=== PATIENT | female | born 1960 | race African-American/Black ===

== ENCOUNTER → 2018-02-21 | Outpatient (CLI) | payer OTHER ==
--- NOTE | 2018-02-21 16:50 | KCIC ---
Bilateral digital screening mammograms: Reason for examination: Routine screening. Comparison is made to previous studies dated 06/05/2013 and 04/09/2012. Interpretation was made with the benefit of CAD. The skin and nipples show no abnormalities. No abnormal axillary lymph nodes are seen. The breast parenchyma is heterogeneously dense. (Breast density: Category C.) There are no dominant masses, suspicious calcifications or architectural distortion. Impression: No evidence of malignancy. Recommend routine screening. Your patient's mammogram demonstrates that she has dense breast tissue (breast density category C or D), which could hide abnormalities, and if she has other risk factors for breast cancer that have been identified, she might benefit from supplemental screening tests that may be suggested by you as her ordering physician. Dense breast tissue, in and of itself, is a relatively common condition. Therefore, this information is not provided to cause undue concern, but rather to raise your awareness and to promote discussion with your patient regarding the presence of other risk factors, in addition to dense breast tissue. Your patient's mammography results will be sent to her. BI-RAD Category 2: Benign. "Our facility is accredited by the [employer] Mammography Program." This patient's information has been entered into a reminder system for the patient to be notified with the results of her examination and a target date for the next mammogram. Electronically signed by: Purvi Flores MD (02/21/2018 4:46 PM) [id number]
== END | disposition home or self-care (01) ==
LOC: KCIC MAMMO 13:51
PROVIDERS: ATTEND Family Medicine
DX: Z12.31 Encounter for screening mammogram for malignant neoplasm of breast (principal)
CPT/HCPCS: 77067

== ENCOUNTER 2020-05-04 13:47 | Inpatient (IN) | payer BC, OTHER ==
[~2020-05-04] VITALS: Ht 165.1 cm; Wt 69.1 kg
[2020-05-04 15:13] LABS: BASO # 0.1 x10^3/uL (0.0-0.2); BASO % 1 % (0-3); EOS % 0 % (0-3); HEMATOCRIT 33.6 % (36.0-47.0); HEMOGLOBIN 10.3 g/dL (12.0-15.5); LYMPH # 1.6 x10^3/uL (1.0-4.8); LYMPH % 11 % (24-48); MEAN CORPUSCULAR HEMOGLOBIN 21 pg (25-35); MEAN CORPUSCULAR HGB CONC 31 g/dL (31-37); MEAN CORPUSCULAR VOLUME 70 fL (79-100); MONO # 0.9 x10^3/uL (0.0-1.1); MONO % 6 % (0-9); NEUT # 11.6 x10^3/uL (1.8-7.7); NEUT % 82 % (31-73); PLATELET COUNT 333 x10^3/uL (140-400); RED BLOOD COUNT 4.81 x10^6/uL (3.50-5.40); RED CELL DISTRIBUTION WIDTH 18.8 % (11.5-14.5); WHITE BLOOD COUNT 14.2 x10^3/uL (4.0-11.0)
[2020-05-04] MEDS ORDERED: methylPREDNISolone SOD SUCC PF 125 MG/2 ML VIAL. IV ONE (15:15)
[2020-05-04] MEDS ORDERED: AZITHRMYCN 500MG IVPB FOR OMNI 250 ML IV ONE (15:15)
[2020-05-04] MEDS ORDERED: ACETAMINOPHEN 500 MG TABLET PO ONE (15:15)
[2020-05-04] MEDS ORDERED: IV NORMAL SALINE 1000ML BAG 1,000 ML IV ONE ×3 (15:15→18:30)
[2020-05-04 15:23] LABS: PROTHROMBIN TIME PATIENT 17.4 SEC (11.7-14.0)
[2020-05-04 15:32] LABS: CALCIUM 9.2 mg/dL (8.5-10.1); CREATININE 1.2 mg/dL (0.6-1.0); GFR 55.3; POTASSIUM 3.7 mmol/L (3.5-5.1)
[2020-05-04 15:38] LABS: ALBUMIN 2.8 g/dL (3.4-5.0); ALBUMIN/GLOBULIN RATIO 0.5 (1.0-1.7); TOTAL BILIRUBIN 0.5 mg/dL (0.2-1.0); TOTAL PROTEIN 8.6 g/dL (6.4-8.2)
[2020-05-04 15:41] LABS: % BANDS 13 % (0-9); % LYMPHS 7 % (24-48); % MONOS 10 % (0-10); % SEGS 70 % (35-66); HYPOCHROMIA MOD; PLT ESTIMATE ADEQUATE (ADEQUATE); POLYCHROMASIA OCCASIONAL; TOXIC VACUOLATION SLIGHT
[2020-05-04 15:42] LABS: ANISOCYTOSIS SLIGHT; MICROCYTOSIS MOD; TARGET CELLS OCC
--- NOTE | 2020-05-04 15:47 | PHYS DOC ---
General Adult EDM: Chief Complaint: FEVER HPI: HPI: Patient is a 60 year old female who presents with Monday began having shortness of air, cough, fever. She does work at [employer]. She has a history of diabetes and hypertension. She states that she has been taking Tylenol for knee pain. Patient denies chest pain, abdominal pain, nausea, vomiting, diarrhea, sore throat, headache, dizziness, syncope, numbness or tingling, vision changes, focal weakness. She denies any pain at this time. Review of Systems: Review of Systems: Constitutional: + fever or chills. [] Eyes: Denies change in visual acuity. [] HENT: Denies nasal congestion or sore throat. [] Respiratory: + cough or +shortness of breath. [] Cardiovascular: Denies chest pain or edema. [] GI: Denies abdominal pain, nausea, vomiting, bloody stools or diarrhea. [] : Denies dysuria. [] Musculoskeletal: Denies back pain or joint pain. [] Integument: Denies rash. [] Neurologic: Denies headache, focal weakness or sensory changes. [] Endocrine: Denies polyuria or polydipsia. [] Lymphatic: Denies swollen glands. [] Psychiatric: Denies depression or anxiety. [] Heart Score: Risk Factors: Risk Factors: DM, Current or recent (<one month) smoker, HTN, HLP, family history of CAD, obesity. Risk Scores: Score 0 - 3: 2.5% MACE over next 6 weeks - Discharge Home Score 4 - 6: 20.3% MACE over next 6 weeks - Admit for Clinical Observation Score 7 - 10: 72.7% MACE over next 6 weeks - Early Invasive Strategies Current Medications: Current Medications Medications (Trade) Dose Ordered Sig/Ar Start Time Stop Time Status Last Admin Dose Admin Acetaminophen (Tylenol) 1,000 mg 1X ONCE 05/04/20 15:15 05/04/20 15:16 UNV Azithromycin 250 ml @ 250 mls/hr 1X ONCE 05/04/20 15:15 05/04/20 16:14 UNV Methylprednisolone Sodium Succinate (SOLU-Medrol 125MG VIAL) 125 mg 1X ONCE 05/04/20 15:15 05/04/20 15:16 UNV Sodium Chloride 1,000 ml @ 1,000 mls/hr 1X ONCE 05/04/20 15:15 05/04/20 16:14 UNV Physical Exam: PE: Constitutional: Well developed, well nourished, no acute distress, non-toxic appearance. [] HENT: Normocephalic, atraumatic, bilateral external ears normal, oropharynx moist, no oral exudates, nose normal. [] Eyes: PERRLA, EOMI, conjunctiva normal, no discharge. [] Neck: Normal range of motion, no tenderness, supple, no stridor. [] Cardiovascular:Heart rate tachycardic regular rhythm, no murmur [] Lungs & Thorax: Bilateral upper breath sounds clear and lower diminished to auscultation [] Abdomen: Bowel sounds normal, soft, no tenderness, no masses, no pulsatile masses. [] Skin: Warm, dry, no erythema, no rash. [] Back: No tenderness, no CVA tenderness. [] Extremities: No tenderness, no cyanosis, no clubbing, ROM intact, no edema. [] Neurologic: Alert and oriented X 3, normal motor function, normal sensory function, no focal deficits noted. [] Psychologic: Affect normal, judgement normal, mood normal. [] Current Patient Data: Labs: Laboratory Tests Test 05/04/20 14:55 White Blood Count 14.2 x10^3/uL (4.0-11.0) H Red Blood Count 4.81 x10^6/uL (3.50-5.40) Hemoglobin 10.3 g/dL (12.0-15.5) L Hematocrit 33.6 % (36.0-47.0) L Mean Corpuscular Volume 70 fL (79-100) L Mean Corpuscular Hemoglobin 21 pg (25-35) L Mean Corpuscular Hemoglobin Concent 31 g/dL (31-37) Red Cell Distribution Width 18.8 % (11.5-14.5) H Platelet Count 333 x10^3/uL (140-400) Neutrophils (%) (Auto) 82 % (31-73) H Lymphocytes (%) (Auto) 11 % (24-48) L Monocytes (%) (Auto) 6 % (0-9) Eosinophils (%) (Auto) 0 % (0-3) Basophils (%) (Auto) 1 % (0-3) Neutrophils # (Auto) 11.6 x10^3/uL (1.8-7.7) H Lymphocytes # (Auto) 1.6 x10^3/uL (1.0-4.8) Monocytes # (Auto) 0.9 x10^3/uL (0.0-1.1) Eosinophils # (Auto) 0.0 x10^3/uL (0.0-0.7) Basophils # (Auto) 0.1 x10^3/uL (0.0-0.2) Platelet Estimate Pending Prothrombin Time 17.4 SEC (11.7-14.0) H Prothrombin Time INR 1.5 (0.8-1.1) H Sodium Level 138 mmol/L (136-145) Potassium Level 3.7 mmol/L (3.5-5.1) Chloride Level 101 mmol/L (98-107) Carbon Dioxide Level 22 mmol/L (21-32) Anion Gap 15 (6-14) H Blood Urea Nitrogen 22 mg/dL (7-20) H Creatinine 1.2 mg/dL (0.6-1.0) H Estimated GFR (Cockcroft-Gault) 55.3 BUN/Creatinine Ratio 18 (6-20) Glucose Level 112 mg/dL (70-99) H Calcium Level 9.2 mg/dL (8.5-10.1) Total Bilirubin Pending Aspartate Amino Transferase (AST) Pending Alanine Aminotransferase (ALT) Pending Alkaline Phosphatase Pending Total Protein Pending Albumin Pending Albumin/Globulin Ratio Pending Laboratory Tests 05/04/20 14:55 Laboratory Tests 05/04/20 14:55 Vital Signs: Vital Signs Date Time Temp Pulse Resp B/P (MAP) Pulse Ox O2 Delivery O2 Flow Rate FiO2 05/04/20 13:50 98.4 98.4 EKG: EK and read by Dr. Christianson as sinus tachycardia no STEMI Radiology/Procedures: Radiology/Procedures: [] Impression: [facility] [address] [place] [address] IMAGING REPORT Signed PATIENT: YADIRA ROMOCCOUNT: [id number] : 1960 LOCATION: ER AGE: 60 SEX: F EXAM STATUS: REG ER ORD. PHYSICIAN: MIRZA PINA APRN REASON: COUGH, FEVER PROCEDURE: PORTABLE CHEST 1V EXAM: Chest, single view. HISTORY: Cough. Fever. COMPARISON: None. FINDINGS: A frontal view of the chest is obtained. There is diffuse left lower lobe infiltrate with a suspected small left pleural effusion. There is a prominent cardiac silhouette. There is no pneumothorax. IMPRESSION: Diffuse left lower lobe infiltrate with suspected small pleural effusion. Electronically signed by: Nohemi Gimenez MD (05/04/2020 4:09 PM) [id number] DICTATED and SIGNED BY: NOHEMI GIMENEZ MD DATE: 05/04/20 1600 [facility] [address] [place] [address] IMAGING REPORT Signed PATIENT: MARLEY ROMOOUNT: [id number] : 1960 LOCATION: ER AGE: 60 SEX: F EXAM STATUS: REG ER ORD. PHYSICIAN: MIRZA PINA APRN REASON: SOA, HYPOXIA PROCEDURE: CT ANGIOGRAPHY CHEST EXAM: CT Pulmonary Angiogram INDICATION: Reason: SOA, HYPOXIA / Spl. Instructions: IV OMNI 350 75 MLS / History: TECHNIQUE: Multi-detector row images were acquired from the thoracic inlet through the upper abdomen with the use of IV contrast. Sagittal and coronal images were acquired from the transaxial data. MIP images of the pulmonary arteries were obtained. All CT scans performed at this facility utilize dose optimization techniques as appropriate to the exam, including the following: Automated exposure control and adjustment of the mA and/or KV according to patient size (this includes techniques or standardized protocols for targeted exams where dose is indication/reason for exam). IV CONTRAST: Administered COMPARISON: 05/04/2020 chest x-ray FINDINGS: PULMONARY ARTERIES: Suboptimal contrast bolus opacification. No pulmonary emboli are identified. CARDIOVASCULAR: Mild cardiac enlargement. No pericardial effusion. Aorta is normal caliber. MEDIASTINUM & NARA: Enlargement of the thyroid gland diffusely is present with coarse calcification in the right LUNGS: Lobar consolidation in the left lower lobe compatible with bacterial pneumonia is present, superimposed on mild centrilobular pattern emphysema. The rest of the lungs are generally well aerated with no discrete groundglass opacities suspicious for atypical pneumonia. PLEURAL SPACE: No pleural effusions or pneumothorax. OSSEOUS & SOFT TISSUE: The bones are unremarkable. There is mild bilateral axillary lymphadenopathy with lymph nodes measuring up to 14 mm short axis diameter and 23 mm long axis diameter. ABDOMEN: Included upper abdomen shows abnormal hypoechoic enhancement in the hilum of the right kidney that could represent a partially imaged right renal mass. IMPRESSION: 1. No evidence of pulmonary emboli. 2. Centrilobular emphysema with left lower lobe pneumonia. 3. Bilateral axillary adenopathy that could reflect an underlying lymphoproliferative process or systemic inflammatory process such as sarcoidosis. Correlate clinically. 4. Partially imaged right renal mass. Recommend dedicated renal mass protocol CT abdomen and pelvis when clinically feasible. FOR INTERNAL CODING PURPOSES Critical result: Findings discussed with MIRZA PINA at 05/04/2020 4:26 PM. RESULT CODE: (C) Electronically signed by: Alesha Nick MD (05/04/2020 4:29 PM) [facility] [place] and SIGNED BY: ALESHA NICK MD DATE: 05/04/20 1629 Course & Med Decision Making: Course & Med Decision Making Pertinent Labs and Imaging studies reviewed. (See chart for details) COVID-19 CRITERIA: The patient was evaluated during the global COVID-19 pandemic, and that diagnosis was suspected/considered upon their initial presentation. Their evaluation, treatment and testing was consistent with current guidelines for patients who present with complaints or symptoms that may be related to COVID-19. See HPI. Patient does not usually wear oxygen and she is on 2 L satting at 93%. She is febrile. She has a heart rate of 128. Lungs are clear in upper lobes and diminished in lower lobes. She denies being a smoker. She will be tested for Covid. Patient has been given 1 L of fluid and azithromycin IV. She does have bandemia and white blood cell count is 14.2. D-dimer is 3.01. I have ordered a CTA chest. I have spoken to Dr. Bright for admission. [] Airam Disclaimer: Airam Disclaimer: This electronic medical record was generated, in whole or in part, using a voice recognition dictation system. COVID-19 Patient Risks: Age 65 or older: No Sign of co-morbidity: Yes Exp to person + for COVID: No Exp to PUI: No Travel from affected area: No Lower respiratory symptoms: Yes Fever: Yes Other: No PPE Use: Full PPE with N95 mask or PAPR: Yes Date and Time of Reassessment Date: May 04, 2020 Time: 15:53 Fluid Challenge Is the fluid challenge complet: No IBW Target Volume Used: No BMI > 30: No Vital Signs Vital Signs: Vital Signs Date Time Temp Pulse Resp B/P (MAP) Pulse Ox O2 Delivery O2 Flow Rate FiO2 05/04/20 13:50 98.4 98.4 Temperature Source: Oral Respirations Respiratory Effort: Non-Labored Respiratory Pattern: Normal Cardiovascular Pulse Rhythm: Regular Heart: Nml S1, S2, no murmurs Lung Sounds Breath Sounds: Diminished Capillary Refil Capillary Refill: Rt Hand < 3 seconds Peripheral Pulse Pulse Location: Radial Pulse Strength: Normal (2+) Pulse Assessment Method: Palpation Integumentary Skin: Warm Skin Moisture: Dry Skin Turgor: Normal Skin Color: warm Fingernail Color: WNL Departure Departure Referrals: DEEPALI SUGGS MD (PCP) MIRZA PINA APRN May 04, 2020 15:47
--- NOTE | 2020-05-04 15:55 | PDOC1 ---
History and Physical Date of Admission Date of Admission DATE: 05/04/20 TIME: 15:55 Identification/Chief Complaint Chief Complaint SEEN IN ER WITH PNEUMONIA, POSSIBLE COVID-19 SYNDROME 60 year old female who presents with Monday began having shortness of air, cough, fever. works at [employer]. She has a history of diabetes and hypertension. She states that she has been taking Tylenol for knee pain. Patient denies chest pain, abdominal pain, nausea, vomiting, diarrhea, sore throat, headache, dizziness, syncope, numbness or tingling, vision changes, focal weakness. She denies any pain at this time. ct c/w large LLL INFILTRATE pt is pui Family History Family History: Hypertension Social History Smoke: No ALCOHOL: none Drugs: None Current Medications Current Medications Current Medications Acetaminophen (Tylenol) 1,000 mg 1X ONCE PO ; Start 05/04/20 at 15:15; Stop 05/04/20 at 15:16; Status UNV Methylprednisolone Sodium Succinate (SOLU-Medrol 125MG VIAL) 125 mg 1X ONCE IV ; Start 05/04/20 at 15:15; Stop 05/04/20 at 15:16; Status UNV Sodium Chloride 1,000 ml @ 1,000 mls/hr 1X ONCE IV Last administered on 05/04/20at 15:40; Start 05/04/20 at 15:15; Stop 05/04/20 at 16:14; Status UNV Azithromycin 250 ml @ 250 mls/hr 1X ONCE IV ; Start 05/04/20 at 15:15; Stop 05/04/20 at 16:14; Status UNV Sodium Chloride 1,000 ml @ 1,000 mls/hr 1X ONCE IV ; Start 05/04/20 at 16:00; Stop 05/04/20 at 16:59; Status UNV Allergies Allergies: Coded Allergies: No Known Drug Allergies (Unverified , 05/04/20) ROS Review of System Constitutional: + fever or chills. [] Eyes: Denies change in visual acuity. [] HENT: Denies nasal congestion or sore throat. [] Respiratory: + cough or +shortness of breath. [] Cardiovascular: Denies chest pain or edema. [] GI: Denies abdominal pain, nausea, vomiting, bloody stools or diarrhea. [] : Denies dysuria. [] Musculoskeletal: Denies back pain or joint pain. [] Integument: Denies rash. [] Neurologic: Denies headache, focal weakness or sensory changes. [] Endocrine: Denies polyuria or polydipsia. [] Lymphatic: Denies swollen glands. [] Psychiatric: Denies depression or anxiety. [] 14 pt ros otherwise neg Physical Exam Physical Exam Constitutional: Well developed, well nourished, no acute distress, non-toxic appearance. [] HENT: Normocephalic, atraumatic, bilateral external ears normal, oropharynx moist, no oral exudates, nose normal. [] Eyes: PERRLA, EOMI, conjunctiva normal, no discharge. [] Neck: Normal range of motion, no tenderness, supple, no stridor. [] Cardiovascular:Heart rate tachycardic regular rhythm, no murmur [] Lungs & Thorax: Bilateral upper breath sounds clear and lower diminished to au scultation [] Abdomen: Bowel sounds normal, soft, no tenderness, no masses, no pulsatile masses. [] Skin: Warm, dry, no erythema, no rash. [] Back: No tenderness, no CVA tenderness. [] Extremities: No tenderness, no cyanosis, no clubbing, ROM intact, no edema. [] Neurologic: Alert and oriented X 3, normal motor function, normal sensory function, no focal deficits noted. [] Psychologic: Affect normal, judgment normal, mood normal. [] Breasts: Not examined Abdomen: Soft Rectal Exam: not examined Extremities: No clubbing, No cyanosis Skin: No breakdown Neuro: Normal speech, Cranial nerves 3-12 NL Psych/Mental Status: Mental status NL, Mood NL Vitals Vitals Vital Signs Date Time Temp Pulse Resp B/P (MAP) Pulse Ox O2 Delivery O2 Flow Rate FiO2 05/04/20 13:50 98.4 98.4 Labs Labs Laboratory Tests Test 05/04/20 14:55 White Blood Count 14.2 x10^3/uL (4.0-11.0) Red Blood Count 4.81 x10^6/uL (3.50-5.40) Hemoglobin 10.3 g/dL (12.0-15.5) Hematocrit 33.6 % (36.0-47.0) Mean Corpuscular Volume 70 fL (79-100) Mean Corpuscular Hemoglobin 21 pg (25-35) Mean Corpuscular Hemoglobin Concent 31 g/dL (31-37) Red Cell Distribution Width 18.8 % (11.5-14.5) Platelet Count 333 x10^3/uL (140-400) Neutrophils (%) (Auto) 82 % (31-73) Lymphocytes (%) (Auto) 11 % (24-48) Monocytes (%) (Auto) 6 % (0-9) Eosinophils (%) (Auto) 0 % (0-3) Basophils (%) (Auto) 1 % (0-3) Neutrophils # (Auto) 11.6 x10^3/uL (1.8-7.7) Lymphocytes # (Auto) 1.6 x10^3/uL (1.0-4.8) Monocytes # (Auto) 0.9 x10^3/uL (0.0-1.1) Eosinophils # (Auto) 0.0 x10^3/uL (0.0-0.7) Basophils # (Auto) 0.1 x10^3/uL (0.0-0.2) Segmented Neutrophils % 70 % (35-66) Band Neutrophils % 13 % (0-9) Lymphocytes % 7 % (24-48) Monocytes % 10 % (0-10) Toxic Vacuolation Slight Platelet Estimate Adequate (ADEQUATE) Polychromasia Occasional Hypochromasia Mod Anisocytosis Slight Microcytosis Mod Target Cells Occ Prothrombin Time 17.4 SEC (11.7-14.0) Prothromb Time International Ratio 1.5 (0.8-1.1) D-Dimer (Kyung) 3.01 ug/mlFEU (0.00-0.50) Sodium Level 138 mmol/L (136-145) Potassium Level 3.7 mmol/L (3.5-5.1) Chloride Level 101 mmol/L (98-107) Carbon Dioxide Level 22 mmol/L (21-32) Anion Gap 15 (6-14) Blood Urea Nitrogen 22 mg/dL (7-20) Creatinine 1.2 mg/dL (0.6-1.0) Estimated GFR (Cockcroft-Gault) 55.3 BUN/Creatinine Ratio 18 (6-20) Glucose Level 112 mg/dL (70-99) Calcium Level 9.2 mg/dL (8.5-10.1) Total Bilirubin 0.5 mg/dL (0.2-1.0) Aspartate Amino Transf (AST/SGOT) 28 U/L (15-37) Alanine Aminotransferase (ALT/SGPT) 19 U/L (14-59) Alkaline Phosphatase 116 U/L (46-116) Troponin I Quantitative < 0.017 ng/mL (0.000-0.055) Total Protein 8.6 g/dL (6.4-8.2) Albumin 2.8 g/dL (3.4-5.0) Albumin/Globulin Ratio 0.5 (1.0-1.7) Laboratory Tests Test 05/04/20 14:55 White Blood Count 14.2 x10^3/uL (4.0-11.0) Red Blood Count 4.81 x10^6/uL (3.50-5.40) Hemoglobin 10.3 g/dL (12.0-15.5) Hematocrit 33.6 % (36.0-47.0) Mean Corpuscular Volume 70 fL (79-100) Mean Corpuscular Hemoglobin 21 pg (25-35) Mean Corpuscular Hemoglobin Concent 31 g/dL (31-37) Red Cell Distribution Width 18.8 % (11.5-14.5) Platelet Count 333 x10^3/uL (140-400) Neutrophils (%) (Auto) 82 % (31-73) Lymphocytes (%) (Auto) 11 % (24-48) Monocytes (%) (Auto) 6 % (0-9) Eosinophils (%) (Auto) 0 % (0-3) Basophils (%) (Auto) 1 % (0-3) Neutrophils # (Auto) 11.6 x10^3/uL (1.8-7.7) Lymphocytes # (Auto) 1.6 x10^3/uL (1.0-4.8) Monocytes # (Auto) 0.9 x10^3/uL (0.0-1.1) Eosinophils # (Auto) 0.0 x10^3/uL (0.0-0.7) Basophils # (Auto) 0.1 x10^3/uL (0.0-0.2) Segmented Neutrophils % 70 % (35-66) Band Neutrophils % 13 % (0-9) Lymphocytes % 7 % (24-48) Monocytes % 10 % (0-10) Toxic Vacuolation Slight Platelet Estimate Adequate (ADEQUATE) Polychromasia Occasional Hypochromasia Mod Anisocytosis Slight Microcytosis Mod Target Cells Occ Prothrombin Time 17.4 SEC (11.7-14.0) Prothromb Time International Ratio 1.5 (0.8-1.1) D-Dimer (Kyung) 3.01 ug/mlFEU (0.00-0.50) Sodium Level 138 mmol/L (136-145) Potassium Level 3.7 mmol/L (3.5-5.1) Chloride Level 101 mmol/L (98-107) Carbon Dioxide Level 22 mmol/L (21-32) Anion Gap 15 (6-14) Blood Urea Nitrogen 22 mg/dL (7-20) Creatinine 1.2 mg/dL (0.6-1.0) Estimated GFR (Cockcroft-Gault) 55.3 BUN/Creatinine Ratio 18 (6-20) Glucose Level 112 mg/dL (70-99) Calcium Level 9.2 mg/dL (8.5-10.1) Total Bilirubin 0.5 mg/dL (0.2-1.0) Aspartate Amino Transf (AST/SGOT) 28 U/L (15-37) Alanine Aminotransferase (ALT/SGPT) 19 U/L (14-59) Alkaline Phosphatase 116 U/L (46-116) Troponin I Quantitative < 0.017 ng/mL (0.000-0.055) Total Protein 8.6 g/dL (6.4-8.2) Albumin 2.8 g/dL (3.4-5.0) Albumin/Globulin Ratio 0.5 (1.0-1.7) Images Images SEX: F EXAM STATUS: REG ER ORD. PHYSICIAN: MIRZA PINA APRN REASON: SOA, HYPOXIA PROCEDURE: CT ANGIOGRAPHY CHEST EXAM: CT Pulmonary Angiogram INDICATION: Reason: SOA, HYPOXIA / Spl. Instructions: IV OMNI 350 75 MLS / History: TECHNIQUE: Multi-detector row images were acquired from the thoracic inlet through the upper abdomen with the use of IV contrast. Sagittal and coronal images were acquired from the transaxial data. MIP images of the pulmonary arteries were obtained. All CT scans performed at this facility utilize dose optimization techniques as appropriate to the exam, including the following: Automated exposure control and adjustment of the mA and/or KV according to patient size (this includes techniques or standardized protocols for targeted exams where dose is indication/reason for exam). IV CONTRAST: Administered COMPARISON: 05/04/2020 chest x-ray FINDINGS: PULMONARY ARTERIES: Suboptimal contrast bolus opacification. No pulmonary emboli are identified. CARDIOVASCULAR: Mild cardiac enlargement. No pericardial effusion. Aorta is normal caliber. MEDIASTINUM & NARA: Enlargement of the thyroid gland diffusely is present with coarse calcification in the right LUNGS: Lobar consolidation in the left lower lobe compatible with bacterial pneumonia is present, superimposed on mild centrilobular pattern emphysema. The rest of the lungs are generally well aerated with no discrete groundglass opacities suspicious for atypical pneumonia. PLEURAL SPACE: No pleural effusions or pneumothorax. OSSEOUS & SOFT TISSUE: The bones are unremarkable. There is mild bilateral axillary lymphadenopathy with lymph nodes measuring up to 14 mm short axis diameter and 23 mm long axis diameter. ABDOMEN: Included upper abdomen shows abnormal hypoechoic enhancement in the hilum of the right kidney that could represent a partially imaged right renal mass. IMPRESSION: 1. No evidence of pulmonary emboli. 2. Centrilobular emphysema with left lower lobe pneumonia. 3. Bilateral axillary adenopathy that could reflect an underlying lymphoproliferative process or systemic inflammatory process such as sarcoidosis. Correlate clinically. 4. Partially imaged right renal mass. Recommend dedicated renal mass protocol CT abdomen and pelvis when clinically feasible. FOR INTERNAL CODING PURPOSES Critical result: Findings discussed with MIRZA PINA at 05/04/2020 4:26 PM. RESULT CODE: (C) Electronically signed by: Alesha Nick MD (05/04/2020 4:29 PM) [facility] [place] DICTATED and SIGNED BY: ALESHA NICK MD DATE: 05/04/20 162 EXAM: Chest, single view. HISTORY: Cough. Fever. COMPARISON: None. FINDINGS: A frontal view of the chest is obtained. There is diffuse left lower lobe infiltrate with a suspected small left pleural effusion. There is a prominent cardiac silhouette. There is no pneumothorax. IMPRESSION: Diffuse left lower lobe infiltrate with suspected small pleural effusion. Electronically signed by: Nohemi Gimenez MD (05/04/2020 4:09 PM) [id number] DICTATED and SIGNED BY: NOHEMI GIMENEZ MD DATE: 05/04/20 1609 VTE Prophylaxis Ordered VTE Prophylaxis Devices: Yes VTE Pharmacological Prophylaxi: Yes Assessment/Plan Assessment/Plan impression 1. ACUTE PNEUMONIA, PUI 2. sepsis 3. ACUTE HYPOXIC RESP FAILURE 4. No evidence of pulmonary emboli. 5 Centrilobular emphysema with left lower lobe pneumonia. 6 Bilateral axillary adenopathy that could reflect an underlying lymphoproliferative process or systemic inflammatory process such as sarcoidosis. PULM CONSULTED 7.Partially imaged right renal mass. NEEDS dedicated renal mass protocol CT abdomen and pelvis PLAN ADMIT EMPERIC IV ANTIBIOTICS, ZOSYN, ZITHROMAX Consult pulmonary blood cultures o2 support resp isolation pneumococcal urinary AG LEGIONELLA URINARY AG 02 SUPPORT procalcitonin ferritin DVT PROPHYLAXIS LOVENOX BID SQ PEPSID 20MG PO BID 77 MIN PT EXAM, CHART REVIEW, > 50% of time spent with exam, chart review, pt care coordination Justifications for Admission Other Justification BETSY LUCAS MD May 04, 2020 15:55
[2020-05-04] MEDS ORDERED: cefTRIAXone IV Push 1 GM VIAL. IVP ONE (16:00)
[2020-05-04 16:08] LABS: BASE EXCESS ABG -3 mmol/L (-3-3); HCO3 ABG 20 mmol/L (21-28); PCO2 ABG 29 mmHg (35-46); PO2 ABG 60 mmHg (65-108); SAT O2 ABG 91 % (92-99)
--- NOTE | 2020-05-04 16:12 | RAD ---
EXAM: Chest, single view. HISTORY: Cough. Fever. COMPARISON: None. FINDINGS: A frontal view of the chest is obtained. There is diffuse left lower lobe infiltrate with a suspected small left pleural effusion. There is a prominent cardiac silhouette. There is no pneumothorax. IMPRESSION: Diffuse left lower lobe infiltrate with suspected small pleural effusion. Electronically signed by: Nohemi Kelly MD (05/04/2020 4:09 PM) [id number]
[2020-05-04 16:13] LABS: FIO2 ABG 28
[2020-05-04] MEDS ORDERED: CONTRAST GIVEN. MC PRN (16:15)
[2020-05-04] MEDS ORDERED: IOHEXOL 350 MG/ML 100 ML VIAL. IV ONE (16:15)
[2020-05-04] MEDS ORDERED: ONDANSETRON PF 4 MG/2 ML VIAL. IV PRN ×2 (16:30→17:00)
--- NOTE | 2020-05-04 16:32 | RAD ---
EXAM: CT Pulmonary Angiogram INDICATION: Reason: SOA, HYPOXIA / Spl. Instructions: IV OMNI 350 75 MLS / History: TECHNIQUE: Multi-detector row images were acquired from the thoracic inlet through the upper abdomen with the use of IV contrast. Sagittal and coronal images were acquired from the transaxial data. MIP images of the pulmonary arteries were obtained. All CT scans performed at this facility utilize dose optimization techniques as appropriate to the exam, including the following: Automated exposure control and adjustment of the mA and/or KV according to patient size (this includes techniques or standardized protocols for targeted exams where dose is indication/reason for exam). IV CONTRAST: Administered COMPARISON: 05/04/2020 chest x-ray FINDINGS: PULMONARY ARTERIES: Suboptimal contrast bolus opacification. No pulmonary emboli are identified. CARDIOVASCULAR: Mild cardiac enlargement. No pericardial effusion. Aorta is normal caliber. MEDIASTINUM & NARA: Enlargement of the thyroid gland diffusely is present with coarse calcification in the right LUNGS: Lobar consolidation in the left lower lobe compatible with bacterial pneumonia is present, superimposed on mild centrilobular pattern emphysema. The rest of the lungs are generally well aerated with no discrete groundglass opacities suspicious for atypical pneumonia. PLEURAL SPACE: No pleural effusions or pneumothorax. OSSEOUS & SOFT TISSUE: The bones are unremarkable. There is mild bilateral axillary lymphadenopathy with lymph nodes measuring up to 14 mm short axis diameter and 23 mm long axis diameter. ABDOMEN: Included upper abdomen shows abnormal hypoechoic enhancement in the hilum of the right kidney that could represent a partially imaged right renal mass. IMPRESSION: 1. No evidence of pulmonary emboli. 2. Centrilobular emphysema with left lower lobe pneumonia. 3. Bilateral axillary adenopathy that could reflect an underlying lymphoproliferative process or systemic inflammatory process such as sarcoidosis. Correlate clinically. 4. Partially imaged right renal mass. Recommend dedicated renal mass protocol CT abdomen and pelvis when clinically feasible. FOR INTERNAL CODING PURPOSES Critical result: Findings discussed with MIRZA PINA at 05/04/2020 4:26 PM. RESULT CODE: (C) Electronically signed by: Socorro Nick MD (05/04/2020 4:29 PM) [facility] [place]
--- NOTE | 2020-05-04 16:43 | EKG ---
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
[2020-05-04 16:49] LABS: INFLUENZA A PATIENT NEGATIVE (NEGATIVE); INFLUENZA B PATIENT NEGATIVE (NEGATIVE)
[2020-05-04] MEDS ORDERED: MAG HYDROX/ALUMINUM HYD/SIMETH 30 ML ORAL.SUSP PO PRN (17:00)
[2020-05-04] MEDS ORDERED: 0.9 % SODIUM CHLORIDE 10 ML DISP.SYRIN. IV PRN (17:00)
[2020-05-04] MEDS ORDERED: cloNIDine HCL 0.1 MG TABLET PO PRN (17:00)
[2020-05-04] MEDS ORDERED: ACETAMINOPHEN 325 MG TABLET. PO PRN (17:00)
[2020-05-04] MEDS ORDERED: DOCUSATE SODIUM 100 MG CAPSULE. PO PRN (17:00)
[2020-05-04] MEDS ORDERED: guaiFENesin ORAL 200 MG/10 ML LIQUID. PO PRN (17:00)
[2020-05-04] MEDS ORDERED: ALBUTEROL SULFATE 2.5 MG/3 ML NEBU. NEB PRN (17:00)
[2020-05-04] MEDS ORDERED: SODIUM PHOSPHATES 19/7GM 133 ML ENEMA. PR PRN (17:00)
[2020-05-04 18:35] VITALS: BP 133/72
[2020-05-04] MEDS: IV NORMAL SALINE 1000ML BAG 1,000 ML IV SCH (19:49)
[2020-05-04] MEDS: IPRATRPIUM/ALBUTEROL 0.5/2.5MG 3 ML NEBU. NEB SCH (19:54)
[2020-05-04] MEDS ORDERED: EMPA25TA PO (20:22)
[2020-05-04] MEDS ORDERED: HYDR200T71 PO (20:22)
[2020-05-04] MEDS ORDERED: BENA20TA4 PO (20:23)
[2020-05-04] MEDS ORDERED: INSU100V6 SQ (20:23)
[2020-05-04] MEDS ORDERED: NAPR-514 PO (20:24)
[2020-05-04] MEDS ORDERED: AMLO-186 PO (20:24)
[2020-05-04] MEDS ORDERED: ZOLP10TA PO (20:24)
[2020-05-04] MEDS ORDERED: CRESTOR40 MG PO (20:25)
[2020-05-04] MEDS ORDERED: INSU100V37 SQ (20:25)
[2020-05-04] MEDS: ACETAMINOPHEN 325 MG TABLET. PO PRN (20:59)
[2020-05-04] MEDS: FAMOTIDINE 20 MG TABLET. PO SCH (21:00)
[2020-05-04] MEDS ORDERED: ENOXAPARIN 40 MG/0.4 ML SYRINGE. SQ SCH (21:00)
[2020-05-04] MEDS: ENOXAPARIN 40 MG/0.4 ML SYRINGE. SQ SCH (21:00)
[2020-05-04 23:00] VITALS: BP 112/52
[2020-05-05] MEDS: IV NORMAL SALINE 1000ML BAG 1,000 ML IV SCH ×3 (02:00→20:10)
[2020-05-05] MEDS: ACETAMINOPHEN 325 MG TABLET. PO PRN ×2 (02:45→12:44)
[2020-05-05 02:51] LABS: BILIRUBIN,URINE NEGATIVE (NEG); CLARITY,URINE CLEAR; COLOR,URINE YELLOW; NITRITE,URINE NEGATIVE (NEG); PROTEIN,URINE NEGATIVE (NEG-TRACE); UROBILINOGEN,URINE 0.2 mg/dL (0.2 mg/dL)
[2020-05-05 02:56] LABS: BACTERIA,URINE FEW /HPF (0-FEW); RBC,URINE OCC /HPF (0-2); YEAST,URINE PRESENT /HPF
[2020-05-05 02:57] LABS: AMORPHOUS SEDIMENT,UR PRESENT /HPF
[2020-05-05 03:00] VITALS: BP 122/69
[2020-05-05 04:01] LABS: BASO % 0 % (0-3); EOS % 0 % (0-3); HEMATOCRIT 32.4 % (36.0-47.0); LYMPH # 1.4 x10^3/uL (1.0-4.8); LYMPH % 11 % (24-48); MEAN CORPUSCULAR HEMOGLOBIN 22 pg (25-35); MEAN CORPUSCULAR HGB CONC 31 g/dL (31-37); MEAN CORPUSCULAR VOLUME 70 fL (79-100); MONO # 0.3 x10^3/uL (0.0-1.1); MONO % 2 % (0-9); NEUT # 11.5 x10^3/uL (1.8-7.7); NEUT % 87 % (31-73); PLATELET COUNT 301 x10^3/uL (140-400); RED BLOOD COUNT 4.62 x10^6/uL (3.50-5.40); RED CELL DISTRIBUTION WIDTH 18.8 % (11.5-14.5); WHITE BLOOD COUNT 13.3 x10^3/uL (4.0-11.0)
[2020-05-05 04:15] LABS: CALCIUM 8.7 mg/dL (8.5-10.1); CREATININE 0.9 mg/dL (0.6-1.0); POTASSIUM 3.6 mmol/L (3.5-5.1)
[2020-05-05 04:21] LABS: ALBUMIN 2.2 g/dL (3.4-5.0); ALBUMIN/GLOBULIN RATIO 0.5 (1.0-1.7); TOTAL BILIRUBIN 0.3 mg/dL (0.2-1.0); TOTAL PROTEIN 6.6 g/dL (6.4-8.2)
[2020-05-05] MEDS ORDERED: PANTOPRAZOLE 40 MG TABLET.DR. PO SCH (07:00)
[2020-05-05] MEDS ORDERED: AZITHRMYCN 500MG IVPB FOR OMNI 250 ML IV SCH (07:00)
[2020-05-05 07:16] VITALS: BP 106/87
[2020-05-05] MEDS: IPRATRPIUM/ALBUTEROL 0.5/2.5MG 3 ML NEBU. NEB SCH (08:00)
[2020-05-05] MEDS: FAMOTIDINE 20 MG TABLET. PO SCH ×2 (08:19→20:10)
[2020-05-05] MEDS: ENOXAPARIN 40 MG/0.4 ML SYRINGE. SQ SCH (08:20)
[2020-05-05 11:20] VITALS: BP 122/68
--- NOTE | 2020-05-05 13:15 | NUR ---
Patient transferred to room 519. Report given to CINDI Schmitt.
--- NOTE | 2020-05-05 13:26 | PDOC ---
PULMONARY PROGRESS NOTES DATE: 05/05/20 TIME: 13:26 Vitals Vital Signs Date Time Temp Pulse Resp B/P (MAP) Pulse Ox O2 Delivery O2 Flow Rate FiO2 05/05/20 11:20 97.5 92 20 122/68 (86) 97 Nasal Cannula 2.0 97.5 Skin: Warm Labs Laboratory Tests Test 05/04/20 14:55 05/04/20 15:45 05/04/20 16:00 05/04/20 16:40 White Blood Count 14.2 x10^3/uL (4.0-11.0) Red Blood Count 4.81 x10^6/uL (3.50-5.40) Hemoglobin 10.3 g/dL (12.0-15.5) Hematocrit 33.6 % (36.0-47.0) Mean Corpuscular Volume 70 fL (79-100) Mean Corpuscular Hemoglobin 21 pg (25-35) Mean Corpuscular Hemoglobin Concent 31 g/dL (31-37) Red Cell Distribution Width 18.8 % (11.5-14.5) Platelet Count 333 x10^3/uL (140-400) Neutrophils (%) (Auto) 82 % (31-73) Lymphocytes (%) (Auto) 11 % (24-48) Monocytes (%) (Auto) 6 % (0-9) Eosinophils (%) (Auto) 0 % (0-3) Basophils (%) (Auto) 1 % (0-3) Neutrophils # (Auto) 11.6 x10^3/uL (1.8-7.7) Lymphocytes # (Auto) 1.6 x10^3/uL (1.0-4.8) Monocytes # (Auto) 0.9 x10^3/uL (0.0-1.1) Eosinophils # (Auto) 0.0 x10^3/uL (0.0-0.7) Basophils # (Auto) 0.1 x10^3/uL (0.0-0.2) Segmented Neutrophils % 70 % (35-66) Band Neutrophils % 13 % (0-9) Lymphocytes % 7 % (24-48) Monocytes % 10 % (0-10) Toxic Vacuolation Slight Platelet Estimate Adequate (ADEQUATE) Polychromasia Occasional Hypochromasia Mod Anisocytosis Slight Microcytosis Mod Target Cells Occ Prothrombin Time 17.4 SEC (11.7-14.0) Prothromb Time International Ratio 1.5 (0.8-1.1) D-Dimer (Kyung) 3.01 ug/mlFEU (0.00-0.50) Sodium Level 138 mmol/L (136-145) Potassium Level 3.7 mmol/L (3.5-5.1) Chloride Level 101 mmol/L (98-107) Carbon Dioxide Level 22 mmol/L (21-32) Anion Gap 15 (6-14) Blood Urea Nitrogen 22 mg/dL (7-20) Creatinine 1.2 mg/dL (0.6-1.0) Estimated GFR (Cockcroft-Gault) 55.3 BUN/Creatinine Ratio 18 (6-20) Glucose Level 112 mg/dL (70-99) Lactic Acid Level 1.0 mmol/L (0.4-2.0) Calcium Level 9.2 mg/dL (8.5-10.1) Ferritin 548 ng/mL (8-252) Total Bilirubin 0.5 mg/dL (0.2-1.0) Aspartate Amino Transf (AST/SGOT) 28 U/L (15-37) Alanine Aminotransferase (ALT/SGPT) 19 U/L (14-59) Alkaline Phosphatase 116 U/L (46-116) Troponin I Quantitative < 0.017 ng/mL (0.000-0.055) Total Protein 8.6 g/dL (6.4-8.2) Albumin 2.8 g/dL (3.4-5.0) Albumin/Globulin Ratio 0.5 (1.0-1.7) Procalcitonin 4.66 ng/mL (0.00-0.10) Acetone Level Neg (NEG) Influenza Type A Antigen Negative (NEGATIVE) Influenza Type B Antigen Negative (NEGATIVE) O2 Saturation 91 % (92-99) Arterial Blood pH 7.46 (7.35-7.45) Arterial Blood pCO2 at Patient Temp 29 mmHg (35-46) Arterial Blood pO2 at Patient Temp 60 mmHg (65-108) Arterial Blood HCO3 20 mmol/L (21-28) Arterial Blood Base Excess -3 mmol/L (-3-3) FiO2 28 Coronavirus (PCR) Not detected (Not Detected) Test 05/04/20 22:32 05/05/20 02:30 05/05/20 03:45 05/05/20 07:25 Glucose (Fingerstick) 189 mg/dL (70-99) 141 mg/dL (70-99) Urine Collection Type Unknown Urine Color Yellow Urine Clarity Clear Urine pH 5.0 (<5.0-8.0) Urine Specific [place] >=1.030 (1.000-1.030) Urine Protein Negative mg/dL (NEG-TRACE) Urine Glucose (UA) >=1000 mg/dL (NEG) Urine Ketones (Stick) 15 mg/dL (NEG) Urine Blood Negative (NEG) Urine Nitrite Negative (NEG) Urine Bilirubin Negative (NEG) Urine Urobilinogen Dipstick 0.2 mg/dL (0.2 mg/dL) Urine Leukocyte Esterase Negative (NEG) Urine RBC Occ /HPF (0-2) Urine WBC 11-20 /HPF (0-4) Urine Squamous Epithelial Cells Mod /LPF Urine Amorphous Sediment Present /HPF Urine Bacteria Few /HPF (0-FEW) Urine Mucus Slight /LPF Urine Yeast Present /HPF White Blood Count 13.3 x10^3/uL (4.0-11.0) Red Blood Count 4.62 x10^6/uL (3.50-5.40) Hemoglobin 10.0 g/dL (12.0-15.5) Hematocrit 32.4 % (36.0-47.0) Mean Corpuscular Volume 70 fL (79-100) Mean Corpuscular Hemoglobin 22 pg (25-35) Mean Corpuscular Hemoglobin Concent 31 g/dL (31-37) Red Cell Distribution Width 18.8 % (11.5-14.5) Platelet Count 301 x10^3/uL (140-400) Neutrophils (%) (Auto) 87 % (31-73) Lymphocytes (%) (Auto) 11 % (24-48) Monocytes (%) (Auto) 2 % (0-9) Eosinophils (%) (Auto) 0 % (0-3) Basophils (%) (Auto) 0 % (0-3) Neutrophils # (Auto) 11.5 x10^3/uL (1.8-7.7) Lymphocytes # (Auto) 1.4 x10^3/uL (1.0-4.8) Monocytes # (Auto) 0.3 x10^3/uL (0.0-1.1) Eosinophils # (Auto) 0.0 x10^3/uL (0.0-0.7) Basophils # (Auto) 0.0 x10^3/uL (0.0-0.2) Sodium Level 143 mmol/L (136-145) Potassium Level 3.6 mmol/L (3.5-5.1) Chloride Level 107 mmol/L (98-107) Carbon Dioxide Level 22 mmol/L (21-32) Anion Gap 14 (6-14) Blood Urea Nitrogen 24 mg/dL (7-20) Creatinine 0.9 mg/dL (0.6-1.0) Estimated GFR (Cockcroft-Gault) 77.0 BUN/Creatinine Ratio 27 (6-20) Glucose Level 146 mg/dL (70-99) Calcium Level 8.7 mg/dL (8.5-10.1) Total Bilirubin 0.3 mg/dL (0.2-1.0) Aspartate Amino Transf (AST/SGOT) 27 U/L (15-37) Alanine Aminotransferase (ALT/SGPT) 19 U/L (14-59) Alkaline Phosphatase 116 U/L (46-116) Total Protein 6.6 g/dL (6.4-8.2) Albumin 2.2 g/dL (3.4-5.0) Albumin/Globulin Ratio 0.5 (1.0-1.7) Test 05/05/20 11:11 Glucose (Fingerstick) 305 mg/dL (70-99) Laboratory Tests Test 05/04/20 14:55 05/04/20 15:45 05/04/20 16:00 05/04/20 16:40 White Blood Count 14.2 x10^3/uL (4.0-11.0) Red Blood Count 4.81 x10^6/uL (3.50-5.40) Hemoglobin 10.3 g/dL (12.0-15.5) Hematocrit 33.6 % (36.0-47.0) Mean Corpuscular Volume 70 fL (79-100) Mean Corpuscular Hemoglobin 21 pg (25-35) Mean Corpuscular Hemoglobin Concent 31 g/dL (31-37) Red Cell Distribution Width 18.8 % (11.5-14.5) Platelet Count 333 x10^3/uL (140-400) Neutrophils (%) (Auto) 82 % (31-73) Lymphocytes (%) (Auto) 11 % (24-48) Monocytes (%) (Auto) 6 % (0-9) Eosinophils (%) (Auto) 0 % (0-3) Basophils (%) (Auto) 1 % (0-3) Neutrophils # (Auto) 11.6 x10^3/uL (1.8-7.7) Lymphocytes # (Auto) 1.6 x10^3/uL (1.0-4.8) Monocytes # (Auto) 0.9 x10^3/uL (0.0-1.1) Eosinophils # (Auto) 0.0 x10^3/uL (0.0-0.7) Basophils # (Auto) 0.1 x10^3/uL (0.0-0.2) Segmented Neutrophils % 70 % (35-66) Band Neutrophils % 13 % (0-9) Lymphocytes % 7 % (24-48) Monocytes % 10 % (0-10) Toxic Vacuolation Slight Platelet Estimate Adequate (ADEQUATE) Polychromasia Occasional Hypochromasia Mod Anisocytosis Slight Microcytosis Mod Target Cells Occ Prothrombin Time 17.4 SEC (11.7-14.0) Prothromb Time International Ratio 1.5 (0.8-1.1) D-Dimer (Kyung) 3.01 ug/mlFEU (0.00-0.50) Sodium Level 138 mmol/L (136-145) Potassium Level 3.7 mmol/L (3.5-5.1) Chloride Level 101 mmol/L (98-107) Carbon Dioxide Level 22 mmol/L (21-32) Anion Gap 15 (6-14) Blood Urea Nitrogen 22 mg/dL (7-20) Creatinine 1.2 mg/dL (0.6-1.0) Estimated GFR (Cockcroft-Gault) 55.3 BUN/Creatinine Ratio 18 (6-20) Glucose Level 112 mg/dL (70-99) Lactic Acid Level 1.0 mmol/L (0.4-2.0) Calcium Level 9.2 mg/dL (8.5-10.1) Ferritin 548 ng/mL (8-252) Total Bilirubin 0.5 mg/dL (0.2-1.0) Aspartate Amino Transf (AST/SGOT) 28 U/L (15-37) Alanine Aminotransferase (ALT/SGPT) 19 U/L (14-59) Alkaline Phosphatase 116 U/L (46-116) Troponin I Quantitative < 0.017 ng/mL (0.000-0.055) Total Protein 8.6 g/dL (6.4-8.2) Albumin 2.8 g/dL (3.4-5.0) Albumin/Globulin Ratio 0.5 (1.0-1.7) Procalcitonin 4.66 ng/mL (0.00-0.10) Acetone Level Neg (NEG) Influenza Type A Antigen Negative (NEGATIVE) Influenza Type B Antigen Negative (NEGATIVE) O2 Saturation 91 % (92-99) Arterial Blood pH 7.46 (7.35-7.45) Arterial Blood pCO2 at Patient Temp 29 mmHg (35-46) Arterial Blood pO2 at Patient Temp 60 mmHg (65-108) Arterial Blood HCO3 20 mmol/L (21-28) Arterial Blood Base Excess -3 mmol/L (-3-3) FiO2 28 Coronavirus (PCR) Not detected (Not Detected) Test 05/04/20 22:32 05/05/20 02:30 05/05/20 03:45 05/05/20 07:25 Glucose (Fingerstick) 189 mg/dL (70-99) 141 mg/dL (70-99) Urine Collection Type Unknown Urine Color Yellow Urine Clarity Clear Urine pH 5.0 (<5.0-8.0) Urine Specific [place] >=1.030 (1.000-1.030) Urine Protein Negative mg/dL (NEG-TRACE) Urine Glucose (UA) >=1000 mg/dL (NEG) Urine Ketones (Stick) 15 mg/dL (NEG) Urine Blood Negative (NEG) Urine Nitrite Negative (NEG) Urine Bilirubin Negative (NEG) Urine Urobilinogen Dipstick 0.2 mg/dL (0.2 mg/dL) Urine Leukocyte Esterase Negative (NEG) Urine RBC Occ /HPF (0-2) Urine WBC 11-20 /HPF (0-4) Urine Squamous Epithelial Cells Mod /LPF Urine Amorphous Sediment Present /HPF Urine Bacteria Few /HPF (0-FEW) Urine Mucus Slight /LPF Urine Yeast Present /HPF White Blood Count 13.3 x10^3/uL (4.0-11.0) Red Blood Count 4.62 x10^6/uL (3.50-5.40) Hemoglobin 10.0 g/dL (12.0-15.5) Hematocrit 32.4 % (36.0-47.0) Mean Corpuscular Volume 70 fL (79-100) Mean Corpuscular Hemoglobin 22 pg (25-35) Mean Corpuscular Hemoglobin Concent 31 g/dL (31-37) Red Cell Distribution Width 18.8 % (11.5-14.5) Platelet Count 301 x10^3/uL (140-400) Neutrophils (%) (Auto) 87 % (31-73) Lymphocytes (%) (Auto) 11 % (24-48) Monocytes (%) (Auto) 2 % (0-9) Eosinophils (%) (Auto) 0 % (0-3) Basophils (%) (Auto) 0 % (0-3) Neutrophils # (Auto) 11.5 x10^3/uL (1.8-7.7) Lymphocytes # (Auto) 1.4 x10^3/uL (1.0-4.8) Monocytes # (Auto) 0.3 x10^3/uL (0.0-1.1) Eosinophils # (Auto) 0.0 x10^3/uL (0.0-0.7) Basophils # (Auto) 0.0 x10^3/uL (0.0-0.2) Sodium Level 143 mmol/L (136-145) Potassium Level 3.6 mmol/L (3.5-5.1) Chloride Level 107 mmol/L (98-107) Carbon Dioxide Level 22 mmol/L (21-32) Anion Gap 14 (6-14) Blood Urea Nitrogen 24 mg/dL (7-20) Creatinine 0.9 mg/dL (0.6-1.0) Estimated GFR (Cockcroft-Gault) 77.0 BUN/Creatinine Ratio 27 (6-20) Glucose Level 146 mg/dL (70-99) Calcium Level 8.7 mg/dL (8.5-10.1) Total Bilirubin 0.3 mg/dL (0.2-1.0) Aspartate Amino Transf (AST/SGOT) 27 U/L (15-37) Alanine Aminotransferase (ALT/SGPT) 19 U/L (14-59) Alkaline Phosphatase 116 U/L (46-116) Total Protein 6.6 g/dL (6.4-8.2) Albumin 2.2 g/dL (3.4-5.0) Albumin/Globulin Ratio 0.5 (1.0-1.7) Test 05/05/20 11:11 Glucose (Fingerstick) 305 mg/dL (70-99) Medications Active Scripts Medications Dose Route/Sig Max Daily Dose Days Date Category Crestor (Rosuvastatin Calcium) 40 Mg Tablet 20 Mg PO DAILY 05/04/20 Reported Tresiba (Insulin Degludec) 100 Unit/1 Ml Vial 64 Unit SQ DAILY 05/04/20 Reported Amlodipine Besylate 5 Mg Tablet 5 Mg PO DAILY 05/04/20 Reported Ambien (Zolpidem Tartrate) 10 Mg Tablet 10 Mg PO PRN QHS PRN 05/04/20 Reported Naproxen 500 Mg Tablet 1 Tab PO BID 30 05/04/20 Reported Benazepril Hcl 20 Mg Tablet 1 Tab PO DAILY 05/04/20 Reported Humalog (Insulin Lispro) 100 Unit/1 Ml Vial 22 Unit SQ TIDAC 05/04/20 Reported Jardiance (Empagliflozin) 25 Mg Tablet 25 Mg PO DAILY 05/04/20 Reported Plaquenil (Hydroxychloroquine Sulfate) 200 Mg Tablet 1 Tab PO BID 30 05/04/20 Reported Impression . Left lower lobe consolidation compatible with bacterial pneumonia SARS-CoV-2 negative Continue current support Repeat CT in 2 months CHEYENNE LAGUNAS MD May 05, 2020 13:26
--- NOTE | 2020-05-05 13:41 | CONS ---
DATE OF CONSULTATION: 05/05/2020 ATTENDING PHYSICIAN: Dr. Bright. REASON FOR CONSULTATION: The patient is seen in pulmonary consultation at the request of Dr. Bright for increasing shortness of air. HISTORY OF PRESENT ILLNESS: The patient is a 60-year-old that presented to the Emergency Room with shortness of breath. She works at [employer], has a history of diabetes, hypertension. She has taken some Tylenol at home for the knee pain. Denies chest pain, abdominal discomfort, nausea, vomiting or diarrhea. The patient underwent a CT chest revealing consolidation of the left lower lobe. There was no central pulmonary emboli. There was bilateral axillary adenopathy. There was also partially imaged right renal mass. PAST MEDICAL HISTORY: Remarkable for hypertension. The patient smoked, but quit many years ago. She does not carry a diagnosis of COPD. No oxygen supplementation at home. She quit tobacco in 2002. FAMILY HISTORY: Mother with lung cancer. ALLERGIES: No known drug allergies. REVIEW OF SYSTEMS: As indicated above, otherwise, a 10-point system was reviewed and negative. CURRENT MEDICATION: List was reviewed. PHYSICAL EXAMINATION: VITAL SIGNS: Stable. O2 saturation was greater than 92%, currently on 2 liters. Yesterday, she had a fever of 101.9. HEENT: Eyes: The sclerae were nonicteric. NECK: Jugular venous distention was not elevated. No lymphadenopathy. CHEST: Full expansion. LUNGS: Crackles and rales in the left base. CARDIOVASCULAR: Regular rate and rhythm with S1, S2, no S3. ABDOMEN: Soft, nontender, nondistended. EXTREMITIES: No clubbing, cyanosis or edema. LABORATORY DATA: Influenza screen was negative. SARS-CoV-2 was likewise negative. Arterial blood gas; pH of 7.46, PaCO2 of 29, PaO2 of 60. White count was elevated. D-dimer was elevated. Electrolytes were noted. UA was noted. Toxicology screen, acetone was negative. IMPRESSION: 1. Acute hypoxemic respiratory failure. 2. Left lower lobe consolidation compatible with pneumonia, gram-negative, possibly gram-positive pneumonia. 3. SARS-CoV-2 negative. 4. Influenza screen was negative. 5. Questionable chronic obstructive pulmonary disease, unknown FEV1. The patient quit tobacco in 2002. 6. Hypertension. PLAN: 1. Recommend continue treatment for pneumonia. 2. Followup CT scan in 2 months. 3. Outpatient pulmonary function testing. 4. Nebulized treatments. 5. A 6-minute walk prior to discharge. 6. Influenza and pneumonia vaccination prior to discharge if not already done. 7. Steroids. 8. DVT prophylaxis. I do appreciate the privilege in sharing in the patient's care. CHEYENNE LAGUNAS MD DR: LIGIA/kaykay JOB#: [id number] / [id number]
[2020-05-05 13:43] VITALS: BP 137/82
--- NOTE | 2020-05-05 14:57 | PDOC ---
[facility] PROGRESS NOTE Date of Service DOS: DATE: 05/05/20 TIME: 14:53 Chief Complaint Chief Complaint ACUTE PNEUMONIA, PUI sepsis ACUTE HYPOXIC RESP FAILURE Centrilobular emphysema with left lower lobe pneumonia. 6 Bilateral axillary adenopathy that could reflect an underlying lymphoproliferative process or systemic inflammatory process such as sarcoidosis. PULM CONSULTED 7.Partially imaged right renal mass. NEEDS dedicated renal mass protocol CT abdomen and pelvis Elevated procalcitonin Severe protein malnutrition PLAN ADMIT Empiric IV ANTIBIOTICS, ZOSYN, ZITHROMAX Consult pulmonary blood cultures o2 support resp isolation pneumococcal urinary AG LEGIONELLA URINARY AG 02 SUPPORT procalcitonin ferritin DVT PROPHYLAXIS LOVENOX BID SQ PEPSID 20MG PO BID History of Present Illness History of Present Illness 06/01/2020 Afebrile, no acute events overnight. No joint pains or shortness of breath at this time. States that she does follow with her primary soil field technician, Dr. Garcia for her arthritis. She does take hydroxychloroquine and naproxen for her shoulder pains when needed. Patient's chart, labs, images were reviewed and discussed with RN 60 year old female who presents with Monday began having shortness of air, cough, fever. works at [employer]. She has a history of diabetes and hypertension. She states that she has been taking Tylenol for knee pain. Patient denies chest pain, abdominal pain, nausea, vomiting, diarrhea, sore throat, headache, dizziness, syncope, numbness or tingling, vision changes, focal weakness. She denies any pain at this time. Vitals/I&O Vitals/I&O: Vital Signs Date Time Temp Pulse Resp B/P (MAP) Pulse Ox O2 Delivery O2 Flow Rate FiO2 05/05/20 13:43 97.6 97 20 137/82 (100) 92 Nasal Cannula 2.0 97.6 I & O 05/04/20 05/04/20 05/05/20 15:00 23:00 07:00 Intake Total 1250 ml 900 ml Output Total 650 ml Balance 1250 ml 250 ml Physical Exam Abdomen: Soft Extremities: No clubbing, No cyanosis Skin: No breakdown Labs Labs: Laboratory Tests Test 05/04/20 14:55 05/04/20 15:45 05/04/20 16:00 05/04/20 16:40 White Blood Count 14.2 x10^3/uL (4.0-11.0) Red Blood Count 4.81 x10^6/uL (3.50-5.40) Hemoglobin 10.3 g/dL (12.0-15.5) Hematocrit 33.6 % (36.0-47.0) Mean Corpuscular Volume 70 fL (79-100) Mean Corpuscular Hemoglobin 21 pg (25-35) Mean Corpuscular Hemoglobin Concent 31 g/dL (31-37) Red Cell Distribution Width 18.8 % (11.5-14.5) Platelet Count 333 x10^3/uL (140-400) Neutrophils (%) (Auto) 82 % (31-73) Lymphocytes (%) (Auto) 11 % (24-48) Monocytes (%) (Auto) 6 % (0-9) Eosinophils (%) (Auto) 0 % (0-3) Basophils (%) (Auto) 1 % (0-3) Neutrophils # (Auto) 11.6 x10^3/uL (1.8-7.7) Lymphocytes # (Auto) 1.6 x10^3/uL (1.0-4.8) Monocytes # (Auto) 0.9 x10^3/uL (0.0-1.1) Eosinophils # (Auto) 0.0 x10^3/uL (0.0-0.7) Basophils # (Auto) 0.1 x10^3/uL (0.0-0.2) Segmented Neutrophils % 70 % (35-66) Band Neutrophils % 13 % (0-9) Lymphocytes % 7 % (24-48) Monocytes % 10 % (0-10) Toxic Vacuolation Slight Platelet Estimate Adequate (ADEQUATE) Polychromasia Occasional Hypochromasia Mod Anisocytosis Slight Microcytosis Mod Target Cells Occ Prothrombin Time 17.4 SEC (11.7-14.0) Prothromb Time International Ratio 1.5 (0.8-1.1) D-Dimer (Kyung) 3.01 ug/mlFEU (0.00-0.50) Sodium Level 138 mmol/L (136-145) Potassium Level 3.7 mmol/L (3.5-5.1) Chloride Level 101 mmol/L (98-107) Carbon Dioxide Level 22 mmol/L (21-32) Anion Gap 15 (6-14) Blood Urea Nitrogen 22 mg/dL (7-20) Creatinine 1.2 mg/dL (0.6-1.0) Estimated GFR (Cockcroft-Gault) 55.3 BUN/Creatinine Ratio 18 (6-20) Glucose Level 112 mg/dL (70-99) Lactic Acid Level 1.0 mmol/L (0.4-2.0) Calcium Level 9.2 mg/dL (8.5-10.1) Ferritin 548 ng/mL (8-252) Total Bilirubin 0.5 mg/dL (0.2-1.0) Aspartate Amino Transf (AST/SGOT) 28 U/L (15-37) Alanine Aminotransferase (ALT/SGPT) 19 U/L (14-59) Alkaline Phosphatase 116 U/L (46-116) Troponin I Quantitative < 0.017 ng/mL (0.000-0.055) Total Protein 8.6 g/dL (6.4-8.2) Albumin 2.8 g/dL (3.4-5.0) Albumin/Globulin Ratio 0.5 (1.0-1.7) Procalcitonin 4.66 ng/mL (0.00-0.10) Acetone Level Neg (NEG) Influenza Type A Antigen Negative (NEGATIVE) Influenza Type B Antigen Negative (NEGATIVE) O2 Saturation 91 % (92-99) Arterial Blood pH 7.46 (7.35-7.45) Arterial Blood pCO2 at Patient Temp 29 mmHg (35-46) Arterial Blood pO2 at Patient Temp 60 mmHg (65-108) Arterial Blood HCO3 20 mmol/L (21-28) Arterial Blood Base Excess -3 mmol/L (-3-3) FiO2 28 Coronavirus (PCR) Not detected (Not Detected) Test 05/04/20 22:32 05/05/20 02:30 05/05/20 03:45 05/05/20 07:25 Glucose (Fingerstick) 189 mg/dL (70-99) 141 mg/dL (70-99) Urine Collection Type Unknown Urine Color Yellow Urine Clarity Clear Urine pH 5.0 (<5.0-8.0) Urine Specific [place] >=1.030 (1.000-1.030) Urine Protein Negative mg/dL (NEG-TRACE) Urine Glucose (UA) >=1000 mg/dL (NEG) Urine Ketones (Stick) 15 mg/dL (NEG) Urine Blood Negative (NEG) Urine Nitrite Negative (NEG) Urine Bilirubin Negative (NEG) Urine Urobilinogen Dipstick 0.2 mg/dL (0.2 mg/dL) Urine Leukocyte Esterase Negative (NEG) Urine RBC Occ /HPF (0-2) Urine WBC 11-20 /HPF (0-4) Urine Squamous Epithelial Cells Mod /LPF Urine Amorphous Sediment Present /HPF Urine Bacteria Few /HPF (0-FEW) Urine Mucus Slight /LPF Urine Yeast Present /HPF White Blood Count 13.3 x10^3/uL (4.0-11.0) Red Blood Count 4.62 x10^6/uL (3.50-5.40) Hemoglobin 10.0 g/dL (12.0-15.5) Hematocrit 32.4 % (36.0-47.0) Mean Corpuscular Volume 70 fL (79-100) Mean Corpuscular Hemoglobin 22 pg (25-35) Mean Corpuscular Hemoglobin Concent 31 g/dL (31-37) Red Cell Distribution Width 18.8 % (11.5-14.5) Platelet Count 301 x10^3/uL (140-400) Neutrophils (%) (Auto) 87 % (31-73) Lymphocytes (%) (Auto) 11 % (24-48) Monocytes (%) (Auto) 2 % (0-9) Eosinophils (%) (Auto) 0 % (0-3) Basophils (%) (Auto) 0 % (0-3) Neutrophils # (Auto) 11.5 x10^3/uL (1.8-7.7) Lymphocytes # (Auto) 1.4 x10^3/uL (1.0-4.8) Monocytes # (Auto) 0.3 x10^3/uL (0.0-1.1) Eosinophils # (Auto) 0.0 x10^3/uL (0.0-0.7) Basophils # (Auto) 0.0 x10^3/uL (0.0-0.2) Sodium Level 143 mmol/L (136-145) Potassium Level 3.6 mmol/L (3.5-5.1) Chloride Level 107 mmol/L (98-107) Carbon Dioxide Level 22 mmol/L (21-32) Anion Gap 14 (6-14) Blood Urea Nitrogen 24 mg/dL (7-20) Creatinine 0.9 mg/dL (0.6-1.0) Estimated GFR (Cockcroft-Gault) 77.0 BUN/Creatinine Ratio 27 (6-20) Glucose Level 146 mg/dL (70-99) Calcium Level 8.7 mg/dL (8.5-10.1) Total Bilirubin 0.3 mg/dL (0.2-1.0) Aspartate Amino Transf (AST/SGOT) 27 U/L (15-37) Alanine Aminotransferase (ALT/SGPT) 19 U/L (14-59) Alkaline Phosphatase 116 U/L (46-116) Total Protein 6.6 g/dL (6.4-8.2) Albumin 2.2 g/dL (3.4-5.0) Albumin/Globulin Ratio 0.5 (1.0-1.7) Test 05/05/20 11:11 Glucose (Fingerstick) 305 mg/dL (70-99) Comment Review of Relevant I have reviewed the following items chay (where applicable) has been applied. Medications: Current Medications Medications (Trade) Dose Ordered Sig/Ar Route PRN Reason Start Time Stop Time Status Last Admin Dose Admin Acetaminophen (Tylenol) 1,000 mg 1X ONCE PO 05/04/20 15:15 05/04/20 15:59 DC 05/04/20 16:30 Methylprednisolone Sodium Succinate (SOLU-Medrol 125MG VIAL) 125 mg 1X ONCE IV 05/04/20 15:15 05/04/20 15:59 DC 05/04/20 16:30 Sodium Chloride 1,000 ml @ 1,000 mls/hr 1X ONCE IV 05/04/20 15:15 05/04/20 16:14 DC 05/04/20 15:40 Azithromycin 250 ml @ 250 mls/hr 1X ONCE IV 05/04/20 15:15 05/04/20 16:14 DC 05/04/20 16:30 Ceftriaxone Sodium (Rocephin) 1 gm 1X ONCE IVP 05/04/20 16:00 05/04/20 16:01 DC 05/04/20 16:31 Iohexol (Omnipaque 350 Mg/ml) 75 ml 1X ONCE IV 05/04/20 16:15 05/04/20 16:16 DC 05/04/20 16:15 Acetaminophen (Tylenol) 650 mg PRN Q4HRS PRN PO FEVER > 100.3'F 05/04/20 16:30 05/05/20 16:29 05/05/20 12:44 Sodium Chloride 1,000 ml @ 100 mls/hr Q10H IV 05/04/20 16:49 05/05/20 04:28 Enoxaparin Sodium (Lovenox 40mg Syringe) 40 mg Q12HR SQ 05/04/20 21:00 05/05/20 13:28 DC 05/05/20 08:20 Famotidine (Pepcid) 20 mg BID PO 05/04/20 21:00 05/05/20 08:19 Justifications for Admission Other Justification COLLEEN ARTHUR MD May 05, 2020 14:57
[2020-05-05] MEDS ORDERED: ZOLPIDEM 5 MG TABLET. PO PRN (15:00)
[2020-05-05] MEDS ORDERED: AZITHROMYCIN 500 MG in IV NORMAL SALINE 250ML 250 ML IV SCH (16:00)
[2020-05-05] MEDS ORDERED: cefTRIAXone IV Push 1 GM VIAL. IVP SCH (16:00)
--- NOTE | 2020-05-05 17:24 | NUR ---
SW following for discharge planning. SW spoke with RN and reviewed chart. Pt from home. Pt currently on 2l 02, ADA diet, IV Azithromycin and IV Rocephin, COVID negative. Pt does not have home 02 and a 6 min walk was ordered to determine 02 needs at discharge. SW following.
[2020-05-05] MEDS: NAPROXEN 500 MG TABLET PO SCH (17:39)
[2020-05-05] MEDS: amLODIPine BESYLATE 5 MG TABLET PO SCH (17:39)
[2020-05-05] MEDS: LISINOPRIL 20 MG TABLET PO SCH (17:40)
[2020-05-05] MEDS: INSULIN LISPRO 300 UNITS/3 ML VIAL. SQ SCH (17:44)
[2020-05-05 19:00] VITALS: BP 114/66
[2020-05-05] MEDS: methylPREDNISolone SOD SUCC PF 40 MG/ML VIAL. IV SCH (20:09)
[2020-05-05] MEDS: HYDROXYCHLOROQUINE 200 MG TABLET PO SCH (20:09)
[2020-05-05] MEDS ORDERED: ATORVASTATIN CALCIUM 40 MG TABLET. PO SCH (21:00)
[2020-05-05] MEDS ORDERED: INSULIN GLARGINE SYRINGE. SQ SCH (21:00)
[2020-05-05 23:00] VITALS: BP 98/60
[2020-05-06 03:00] VITALS: BP 102/66
[2020-05-06 07:00] VITALS: BP 117/83
[2020-05-06] MEDS: IV NORMAL SALINE 1000ML BAG 1,000 ML IV SCH (08:11)
[2020-05-06] MEDS: amLODIPine BESYLATE 5 MG TABLET PO SCH (08:13)
[2020-05-06] MEDS: methylPREDNISolone SOD SUCC PF 40 MG/ML VIAL. IV SCH (08:13)
[2020-05-06] MEDS: FAMOTIDINE 20 MG TABLET. PO SCH (08:13)
[2020-05-06] MEDS: NAPROXEN 500 MG TABLET PO SCH (08:13)
[2020-05-06] MEDS: LISINOPRIL 20 MG TABLET PO SCH (08:13)
[2020-05-06] MEDS: HYDROXYCHLOROQUINE 200 MG TABLET PO SCH (08:14)
--- NOTE | 2020-05-06 08:16 | PDOC ---
PULMONARY PROGRESS NOTES DATE: 05/06/20 TIME: 08:16 Subjective Patient feels better still requires oxygen Vitals Vital Signs Date Time Temp Pulse Resp B/P (MAP) Pulse Ox O2 Delivery O2 Flow Rate FiO2 05/06/20 07:00 98.4 80 18 117/83 (94) 94 Room Air 98.4 05/05/20 20:05 2.0 ROS: No Nausea, No Chest Pain, No Abdominal Pain, No Increase Cough General: Alert Cardiovascular: S1, S2 Abdomen: Soft Neuro Exam: Alert Extremities: No Edema Skin: Warm Labs Laboratory Tests Test 05/04/20 14:55 05/04/20 15:45 05/04/20 16:00 05/04/20 16:40 White Blood Count 14.2 x10^3/uL (4.0-11.0) Red Blood Count 4.81 x10^6/uL (3.50-5.40) Hemoglobin 10.3 g/dL (12.0-15.5) Hematocrit 33.6 % (36.0-47.0) Mean Corpuscular Volume 70 fL (79-100) Mean Corpuscular Hemoglobin 21 pg (25-35) Mean Corpuscular Hemoglobin Concent 31 g/dL (31-37) Red Cell Distribution Width 18.8 % (11.5-14.5) Platelet Count 333 x10^3/uL (140-400) Neutrophils (%) (Auto) 82 % (31-73) Lymphocytes (%) (Auto) 11 % (24-48) Monocytes (%) (Auto) 6 % (0-9) Eosinophils (%) (Auto) 0 % (0-3) Basophils (%) (Auto) 1 % (0-3) Neutrophils # (Auto) 11.6 x10^3/uL (1.8-7.7) Lymphocytes # (Auto) 1.6 x10^3/uL (1.0-4.8) Monocytes # (Auto) 0.9 x10^3/uL (0.0-1.1) Eosinophils # (Auto) 0.0 x10^3/uL (0.0-0.7) Basophils # (Auto) 0.1 x10^3/uL (0.0-0.2) Segmented Neutrophils % 70 % (35-66) Band Neutrophils % 13 % (0-9) Lymphocytes % 7 % (24-48) Monocytes % 10 % (0-10) Toxic Vacuolation Slight Platelet Estimate Adequate (ADEQUATE) Polychromasia Occasional Hypochromasia Mod Anisocytosis Slight Microcytosis Mod Target Cells Occ Prothrombin Time 17.4 SEC (11.7-14.0) Prothromb Time International Ratio 1.5 (0.8-1.1) D-Dimer (Kyung) 3.01 ug/mlFEU (0.00-0.50) Sodium Level 138 mmol/L (136-145) Potassium Level 3.7 mmol/L (3.5-5.1) Chloride Level 101 mmol/L (98-107) Carbon Dioxide Level 22 mmol/L (21-32) Anion Gap 15 (6-14) Blood Urea Nitrogen 22 mg/dL (7-20) Creatinine 1.2 mg/dL (0.6-1.0) Estimated GFR (Cockcroft-Gault) 55.3 BUN/Creatinine Ratio 18 (6-20) Glucose Level 112 mg/dL (70-99) Lactic Acid Level 1.0 mmol/L (0.4-2.0) Calcium Level 9.2 mg/dL (8.5-10.1) Ferritin 548 ng/mL (8-252) Total Bilirubin 0.5 mg/dL (0.2-1.0) Aspartate Amino Transf (AST/SGOT) 28 U/L (15-37) Alanine Aminotransferase (ALT/SGPT) 19 U/L (14-59) Alkaline Phosphatase 116 U/L (46-116) Troponin I Quantitative < 0.017 ng/mL (0.000-0.055) Total Protein 8.6 g/dL (6.4-8.2) Albumin 2.8 g/dL (3.4-5.0) Albumin/Globulin Ratio 0.5 (1.0-1.7) Procalcitonin 4.66 ng/mL (0.00-0.10) Acetone Level Neg (NEG) Influenza Type A Antigen Negative (NEGATIVE) Influenza Type B Antigen Negative (NEGATIVE) O2 Saturation 91 % (92-99) Arterial Blood pH 7.46 (7.35-7.45) Arterial Blood pCO2 at Patient Temp 29 mmHg (35-46) Arterial Blood pO2 at Patient Temp 60 mmHg (65-108) Arterial Blood HCO3 20 mmol/L (21-28) Arterial Blood Base Excess -3 mmol/L (-3-3) FiO2 28 Coronavirus (PCR) Not detected (Not Detected) Test 05/04/20 22:32 05/05/20 02:30 05/05/20 03:45 05/05/20 07:25 Glucose (Fingerstick) 189 mg/dL (70-99) 141 mg/dL (70-99) Urine Collection Type Unknown Urine Color Yellow Urine Clarity Clear Urine pH 5.0 (<5.0-8.0) Urine Specific [place] >=1.030 (1.000-1.030) Urine Protein Negative mg/dL (NEG-TRACE) Urine Glucose (UA) >=1000 mg/dL (NEG) Urine Ketones (Stick) 15 mg/dL (NEG) Urine Blood Negative (NEG) Urine Nitrite Negative (NEG) Urine Bilirubin Negative (NEG) Urine Urobilinogen Dipstick 0.2 mg/dL (0.2 mg/dL) Urine Leukocyte Esterase Negative (NEG) Urine RBC Occ /HPF (0-2) Urine WBC 11-20 /HPF (0-4) Urine Squamous Epithelial Cells Mod /LPF Urine Amorphous Sediment Present /HPF Urine Bacteria Few /HPF (0-FEW) Urine Mucus Slight /LPF Urine Yeast Present /HPF White Blood Count 13.3 x10^3/uL (4.0-11.0) Red Blood Count 4.62 x10^6/uL (3.50-5.40) Hemoglobin 10.0 g/dL (12.0-15.5) Hematocrit 32.4 % (36.0-47.0) Mean Corpuscular Volume 70 fL (79-100) Mean Corpuscular Hemoglobin 22 pg (25-35) Mean Corpuscular Hemoglobin Concent 31 g/dL (31-37) Red Cell Distribution Width 18.8 % (11.5-14.5) Platelet Count 301 x10^3/uL (140-400) Neutrophils (%) (Auto) 87 % (31-73) Lymphocytes (%) (Auto) 11 % (24-48) Monocytes (%) (Auto) 2 % (0-9) Eosinophils (%) (Auto) 0 % (0-3) Basophils (%) (Auto) 0 % (0-3) Neutrophils # (Auto) 11.5 x10^3/uL (1.8-7.7) Lymphocytes # (Auto) 1.4 x10^3/uL (1.0-4.8) Monocytes # (Auto) 0.3 x10^3/uL (0.0-1.1) Eosinophils # (Auto) 0.0 x10^3/uL (0.0-0.7) Basophils # (Auto) 0.0 x10^3/uL (0.0-0.2) Sodium Level 143 mmol/L (136-145) Potassium Level 3.6 mmol/L (3.5-5.1) Chloride Level 107 mmol/L (98-107) Carbon Dioxide Level 22 mmol/L (21-32) Anion Gap 14 (6-14) Blood Urea Nitrogen 24 mg/dL (7-20) Creatinine 0.9 mg/dL (0.6-1.0) Estimated GFR (Cockcroft-Gault) 77.0 BUN/Creatinine Ratio 27 (6-20) Glucose Level 146 mg/dL (70-99) Calcium Level 8.7 mg/dL (8.5-10.1) Total Bilirubin 0.3 mg/dL (0.2-1.0) Aspartate Amino Transf (AST/SGOT) 27 U/L (15-37) Alanine Aminotransferase (ALT/SGPT) 19 U/L (14-59) Alkaline Phosphatase 116 U/L (46-116) Total Protein 6.6 g/dL (6.4-8.2) Albumin 2.2 g/dL (3.4-5.0) Albumin/Globulin Ratio 0.5 (1.0-1.7) Test 05/05/20 11:11 05/05/20 16:28 05/05/20 21:43 05/06/20 07:42 Glucose (Fingerstick) 305 mg/dL (70-99) 219 mg/dL (70-99) 172 mg/dL (70-99) 190 mg/dL (70-99) Laboratory Tests Test 05/05/20 11:11 05/05/20 16:28 05/05/20 21:43 05/06/20 07:42 Glucose (Fingerstick) 305 mg/dL (70-99) 219 mg/dL (70-99) 172 mg/dL (70-99) 190 mg/dL (70-99) Medications Active Scripts Medications Dose Route/Sig Max Daily Dose Days Date Category Crestor (Rosuvastatin Calcium) 40 Mg Tablet 20 Mg PO DAILY 05/04/20 Reported Tresiba (Insulin Degludec) 100 Unit/1 Ml Vial 64 Unit SQ DAILY 05/04/20 Reported Amlodipine Besylate 5 Mg Tablet 5 Mg PO DAILY 05/04/20 Reported Ambien (Zolpidem Tartrate) 10 Mg Tablet 10 Mg PO PRN QHS PRN 05/04/20 Reported Naproxen 500 Mg Tablet 1 Tab PO BID 30 05/04/20 Reported Benazepril Hcl 20 Mg Tablet 1 Tab PO DAILY 05/04/20 Reported Humalog (Insulin Lispro) 100 Unit/1 Ml Vial 22 Unit SQ TIDAC 05/04/20 Reported Jardiance (Empagliflozin) 25 Mg Tablet 25 Mg PO DAILY 05/04/20 Reported Plaquenil (Hydroxychloroquine Sulfate) 200 Mg Tablet 1 Tab PO BID 30 05/04/20 Reported Impression . IMPRESSION: 1. Acute hypoxemic respiratory failure. 2. Left lower lobe consolidation compatible with pneumonia, gram-negative, possibly gram-positive pneumonia. 3. SARS-CoV-2 negative. 4. Influenza screen was negative. 5. Questionable chronic obstructive pulmonary disease, unknown FEV1. The patient quit tobacco in 2002. 6. Hypertension. Plan . Okay to discharge with oxygen CT in 2 months See below Finish course of antibiotics 1. Recommend continue treatment for pneumonia. 2. Followup CT scan in 2 months. 3. Outpatient pulmonary function testing. 4. Nebulized treatments. 5. A 6-minute walk prior to discharge. 6. Influenza and pneumonia vaccination prior to discharge if not already done. 7. Steroids. 8. DVT prophylaxis. CHEYENNE LAGUNAS MD May 06, 2020 08:16
[2020-05-06] MEDS: INSULIN LISPRO 300 UNITS/3 ML VIAL. SQ SCH ×2 (08:25→11:57)
[2020-05-06] MEDS ORDERED: ENOXAPARIN 40 MG/0.4 ML SYRINGE. SQ SCH (09:00)
[2020-05-06 11:00] VITALS: BP 126/77
--- NOTE | 2020-05-06 11:33 | NUR ---
SW following for discharge planning. SW spoke with RN and reviewed chart. Pt from home with son and grandson. SW met with pt today. 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 SW obtained copy of insurance card for CM and pt's chart. Pt declined the need for HH on discharge. 6 min walk results indicated the need for home 02. LAURI phoned and faxed clinicals to [place] with [employer]. Frankie delivered to pt's room for discharge home today, 05/06. Pt verbalized that she is to call [employer] (number on tank) once she gets home to arrange for home 02 setup. Pt to discharge self-care on oral medications. Pt requested completion of AD for HC. LAURI notarized this completed document as pt a/o x4. Pt listed her daughter Ling Faye ([phone]) as her primary agent and her sister Dorota Paul ([phone]) as her first alternate agent. No further SW needs at this time. Addendum: 05/06/20 at 1154 by SHANNAN CARREON patient choice of vendor form completed. Pt stated no preference in 02 provider. Addendum: 05/06/20 at 1640 by SHANNAN CARREON Confirmed with Lois kemp [facility] that referral and orders were received
[2020-05-06] MEDS ORDERED: PRED-220 PO (12:29)
[2020-05-06] MEDS ORDERED: AMOX500T PO (12:29)
[2020-05-06] MEDS ORDERED: AZIT500T4 PO (12:29)
--- NOTE | 2020-05-06 13:52 | DISCH ---
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
--- NOTE | 2020-05-06 14:21 | NUR ---
Discharge Note: NURY ROMO NATURAL BRIDGE Discharge instructions and discharge home medications reviewed with Patient and a copy given. All questions have been answered and understanding verbalized. The following instructions and handouts were given: d/c instructions Discontinued lines and drains: Peripheral IV intact. Patient discharged to Home or Self Care with Family Member via Wheelchair
[2020-05-07] MEDS ORDERED: predniSONE 10 MG TABLET PO SCH (09:00)
--- NOTE | 2020-05-07 19:33 | PDOC3 ---
[facility]-Discharge Summary Date of Admission: Date of Admission: May 04, 2020 Date of Discharge: Date of Discharge: May 06, 2020 Discharge Diagnosis: Discharge Diagnosis: ACUTE PNEUMONIA, PUI sepsis ACUTE HYPOXIC RESP FAILURE Centrilobular emphysema with left lower lobe pneumonia. 6 Bilateral axillary adenopathy that could reflect an underlying lymphoproliferative process or systemic inflammatory process such as sarcoidosis. PULM CONSULTED 7.Partially imaged right renal mass. NEEDS dedicated renal mass protocol CT abdomen and pelvis Elevated procalcitonin Severe protein malnutrition Hospital Course: Hospital Course: 60 year old female who presents with Monday began having shortness of air, cough, fever. works at [employer]. She has a history of diabetes and hypertension. She states that she has been taking Tylenol for knee pain. Patient denies chest pain, abdominal pain, nausea, vomiting, diarrhea, sore throat, headache, dizziness, syncope, numbness or tingling, vision changes, focal weakness. She denies any pain at this time. Admitted for further care and pulm evaluation. Her symptoms improved with steroids. and her dyspnea improved. She will be discharged with a 10 day course of prednisone. She will need to follow closely with her capital campaign fundraiser for further management. She will also need to follow her PCP with further imaging for her Right renal mass. This was explained to her in detail with her children and they understood. The rest of the hospital course was uneventful. Disposition: Disposition/Orders: D/C to Home Activity: Activity: Resume previous activity Diet: Diet: Regular Medications: Home Meds Active Scripts Prednisone (PREDNISONE ) 10 Mg Tablet, 20 MG PO DAILY for arthritis for 10 Days, #20 TAB Prov:COLLEEN ARTHUR MD 05/06/20 Azithromycin (AZITHROMYCIN TABLET) 500 Mg Tablet, 1 TAB PO DAILY for pnemonia for 3 Days, #3 TAB 0 Refills Prov:COLLEEN ARTHUR MD 05/06/20 Amoxicillin (AMOXICILLIN) 500 Mg Tablet, 500 MG PO TID for pneumonia for 5 Days, #15 TAB 0 Refills Prov:COLLEEN ARTHUR MD 05/06/20 Reported Medications Rosuvastatin Calcium (CRESTOR) 40 Mg Tablet, 20 MG PO DAILY for FOR CHOLESTEROL, #30 TAB 0 Refills 05/04/20 Insulin Degludec (Tresiba) 100 Unit/1 Ml Vial, 64 UNIT SQ DAILY for diabetes, EACH 05/04/20 Amlodipine Besylate (AMLODIPINE BESYLATE) 5 Mg Tablet, 5 MG PO DAILY for htn, TAB 05/04/20 Zolpidem Tartrate (AMBIEN) 10 Mg Tablet, 10 MG PO PRN QHS PRN for INSOMNIA, TAB 0 Refills 05/04/20 Naproxen (NAPROXEN) 500 Mg Tablet, 1 TAB PO BID for pain for 30 Days, #60 TAB 0 Refills 05/04/20 Benazepril Hcl (BENAZEPRIL HCL) 20 Mg Tablet, 1 TAB PO DAILY for blood pressure, #30 TAB 5 Refills 05/04/20 Insulin Lispro (HUMALOG) 100 Unit/1 Ml Vial, 22 UNIT SQ TIDAC for diabetes, VIAL 05/04/20 Empagliflozin (Jardiance) 25 Mg Tablet, 25 MG PO DAILY for diabetes, TAB 05/04/20 Hydroxychloroquine Sulfate (PLAQUENIL) 200 Mg Tablet, 1 TAB PO BID for arthritis for 30 Days, #60 TAB 0 Refills 05/04/20 Scheduled Amlodipine Besylate (Amlodipine Besylate), 5 MG PO DAILY, (Reported) Amoxicillin (Amoxicillin), 500 MG PO TID Azithromycin (Azithromycin Tablet), 1 TAB PO DAILY Benazepril Hcl (Benazepril Hcl), 1 TAB PO DAILY, (Reported) Empagliflozin (Jardiance), 25 MG PO DAILY, (Reported) Hydroxychloroquine Sulfate (Plaquenil), 1 TAB PO BID, (Reported) Insulin Degludec (Tresiba), 64 UNIT SQ DAILY, (Reported) Insulin Lispro (Humalog), 22 UNIT SQ TIDAC, (Reported) Naproxen (Naproxen), 1 TAB PO BID, (Reported) Prednisone (Prednisone ), 20 MG PO DAILY Rosuvastatin Calcium (Crestor), 20 MG PO DAILY, (Reported) Scheduled PRN Zolpidem Tartrate (Ambien), 10 MG PO PRN QHS PRN for INSOMNIA, (Reported) Total Time: Total Time: Total time spent was 40 minutes in preparing scripts, discharge planning with SW and RN, and preparing this discharge summary. Patient seen and examined on day of discharge. Justicifation of Admission Dx: Justifications for Admission: Justification of Admission Dx: Yes Respiratory Failure: Severe Resp Distress COLLEEN ARTHUR MD May 07, 2020 19:33
== END 2020-05-06 14:46 | disposition home or self-care (01) | DRG 871 ==
LOC: ER 13:47 → 6 SOUTH 15:50 → 5 NORTH 05-05 13:42
PROVIDERS: ADMIT Family Medicine; ATTEND Family Medicine
DX: A41.9 Sepsis, unspecified organism (principal); E43 Unspecified severe protein-calorie malnutrition; J15.6 Pneumonia due to other Gram-negative bacteria; J96.01 Acute respiratory failure with hypoxia; E11.9 Type 2 diabetes mellitus without complications; I10 Essential (primary) hypertension; J43.2 Centrilobular emphysema; M19.90 Unspecified osteoarthritis, unspecified site; N28.89 Other specified disorders of kidney and ureter; Z20.828 Contact with and (suspected) exposure to other viral communicable diseases; Z80.1 Family history of malignant neoplasm of trachea, bronchus and lung; Z82.49 Family history of ischemic heart disease and other diseases of the circulatory system; Z87.891 Personal history of nicotine dependence; Z68.25 Body mass index [BMI] 25.0-25.9, adult
CPT/HCPCS: 36415; 71045; 71275; 80053; 81001; 82010; 82728; 82805; 82962; 83605; 84145; 84484; 85007; 85025; 85379; 85610; 86140; 87040; 87086; 87449; 87804; 93005; 94618; 96361; 96365; 96375; 99285; J0456; J0696; J1650; J1815; J2920; J2930; J7030; J7050; Q9967; U0003; G0378

== ENCOUNTER → 2020-12-08 | Outpatient (CLI) | payer BC ==
[~2020-12-08] MED LIST: AMLO-186 PO; AMOX500T PO; AZIT500T4 PO; BENA20TA4 PO; CRESTOR40 MG PO; EMPA25TA PO; GADOTERATE 7.5 MMOL/15ML VIAL. IVP ONE; HYDR200T71 PO; INSU100V37 SQ; INSU100V6 SQ; NAPR-514 PO; PRED-220 PO; ZOLP10TA PO
--- NOTE | 2020-12-08 16:41 | KCIC ---
EXAM: MRI ABDOMEN WITH AND WITHOUT CONTRAST. HISTORY: Liver lesion. TECHNIQUE: MRI of the abdomen was performed before and after the intravenous administration of gadoli nium contrast. COMPARISON: 10/20/2020. FINDINGS: Liver: Hepatic parenchymal signal loss on opposed phase images indicates mild to moderate diffuse hep atic steatosis. The focus of concern along the capsule of hepatic segment 3 demonstrates signal loss on opposed phase images and is undetectable on in phase images. No other lesion is seen and this is c onsistent with focal fatty infiltration. There are no suspicious hepatic lesions. Biliary tree: The gallbladder is unremarkable. The common duct is not dilated. There are no suspiciou s pancreatic parenchymal lesions. The pancreatic duct is mildly dilated at 5 mm distally. There are a few mildly dilated pancreatic ductal side branches. Other findings: A benign cyst at the right renal lower pole measures 7.2 x 4.9 cm. Subcentimeter cyst s elsewhere bilaterally are benign. The adrenal glands and spleen are unremarkable. Stool throughout the colon is consistent with constipation. IMPRESSION: 1. The lesion of concern is focal fatty infiltration. No suspicious hepatic lesions. 2. Mild to moderate diffuse hepatic steatosis elsewhere. 3. Mild dilatation of the pancreatic duct and a few sidebranches without a cause for obstruction. Cor relate for prior pancreatitis. 4. Correlate for constipation. Electronically signed by: Patrick Dia MD (12/08/2020 4:38 PM) [id number]
== END ==
LOC: KCIC MRI 15:11
PROVIDERS: ATTEND Family Medicine
DX: K76.0 Fatty (change of) liver, not elsewhere classified (principal); K59.00 Constipation, unspecified
CPT/HCPCS: 74183; 82565; A9575